=== PATIENT | female | born 1945 | race Caucasian/White ===

== ENCOUNTER 2023-09-20 14:36 | Outpatient (CLI) | payer MEDICARE | END 2023-09-20 14:37 | disposition home or self-care (01) | LOC: CSHMRI 14:36 | PROVIDERS: ATTEND Family Medicine | DX: S32.029G Unspecified fracture of second lumbar vertebra, subsequent encounter for fracture with delayed healing (principal); S32.021G Stable burst fracture of second lumbar vertebra, subsequent encounter for fracture with delayed healing; M25.78 Osteophyte, vertebrae; M48.061 Spinal stenosis, lumbar region without neurogenic claudication; G54.4 Lumbosacral root disorders, not elsewhere classified | CPT/HCPCS: 72148 ==